=== PATIENT | male | born 1925 | race Caucasian/White ===

== ENCOUNTER 2016-07-14 15:45 | Inpatient (IN) ==
[2016-07-14 16:31] LABS: MANUAL DIFF NEEDED? NO
[2016-07-14 16:39] LABS: BASO% 0.1 % (0.0-0.8); EOS# 0.03 X1000 (0.0-0.7); EOS% 0.2 % (0.0-10.0); HEMATOCRIT 34.1 % (42.0-52.0); HEMOGLOBIN 11.3 g/dL (14.0-18.0); IMM GRAN# 0.05 X1000 (0.0-0.04); IMM GRAN% 0.3 % (0.0-0.5); LYMPH# 0.97 X1000 (1.2-3.4); LYMPH% 5.6 % (20.5-51.1); MCH 31.1 PG (27-31); MCHC 33.1 g/dL (33-37); MCV 93.9 FL (81-99); MONO# 2.04 X1000 (0.11-0.59); MONO% 11.9 % (1.7-9.3); MPV 10.5 FL (7.4-10.4); NEUT% 81.9 % (42.2-75.2); PLT 173 X1000 (130-400); RBC 3.63 XMIL (4.7-6.1)
[2016-07-14] MEDS ORDERED: TYLENOL PO ONE (16:42)
--- NOTE | 2016-07-14 16:48 | PROVIDER DOCUMENTATION ---
HPI-General Adult - General Chief Complaint: Shortness of Breath Stated Complaint: FEVER/LOW OXYGEN Time Seen by Provider: 07/14/16 16:33 Source: patient Allergies/Adverse Reactions: Patient Allergies Allergy/AdvReac Type Severity Reaction Status Date / Time adhesive tape Allergy RASH Verified 04/08/15 11:21 Home Medications: Home Medication List Medication Instructions Recorded Confirmed Last Taken Type Aspirin [[place] Aspirin] 81 mg PO DAILY 10/22/13 04/25/16 04/25/16 09:00 History SIMVAstatin [Zocor] 40 mg PO HS 10/22/13 04/25/16 03/21/15 20:00 History Tamsulosin [Flomax] 0.4 mg PO DAILY 10/22/13 04/25/16 03/21/15 20:00 History Multivit-Min/FA/Lycopene/Lut 1 each PO DAILY 05/04/14 04/25/16 03/21/15 20:00 History [Centrum Silver Tablet] Hydralazine [Apresoline] 50 mg PO TID 03/17/15 04/25/16 03/22/15 05:00 History Calcium Acetate 667 mg PO DAILY 04/25/16 04/25/16 Unknown History Cholecalciferol (Vitamin D3) 5,000 unit PO DAILY 04/25/16 04/25/16 Unknown History [Vitamin D3] Folic Acid/Vit Bcomp,C [Dialyvite 0.8 mg PO DAILY 04/25/16 04/25/16 Unknown History 800 Tablet] Gabapentin [Neurontin] 100 mg PO QAM 04/25/16 04/25/16 Unknown History Loratadine 10 mg PO DAILY 04/25/16 04/25/16 Unknown History Mirtazapine [Remeron] 30 mg PO HS 04/25/16 04/25/16 Unknown History Nitroglycerin [Nitrostat] 0.4 mg SL PRN PRN 04/25/16 04/25/16 Unknown History Zinc 50 mg PO DAILY 04/25/16 04/25/16 Unknown History Acetaminophen [Tylenol] 650 mg PO Q4H PRN PRN #0 tablet 04/30/16 Unknown Rx Albuterol 2.5MG/Ipratrop 0.5MG 3 ml INH RTQ4H #0 neb 04/30/16 Unknown Rx [Duoneb (A & A)] CefDINIR [Omnicef] 300 mg PO DAILY #10 capsule 04/30/16 Unknown Rx Epoetin Sascha [Epogen] 10,000 unit SUBQ MoWeFr@0900 #0 04/30/16 Unknown Rx vial Methylprednisolone [Medrol Dosepak] 4 mg PO DIRECTED #1 package 04/30/16 Unknown Rx CefDINIR [Omnicef] 300 mg PO BID #10 capsule 05/01/16 Unknown Rx Methylprednisolone [Medrol Dosepak] 4 mg PO DIRECTED #1 package 05/01/16 Unknown Rx - History of Present Illness -Gen Adult Nature of Presenting Problems: Pt. is 89 yom that presents with c/o SOB and fever for two days. Pt. reports he was at dialysis today and states he was cold and couldn't get warm. Pt. states he told them he wanted to stop and go to the ED. Pt. denies any pain anywhere. Location of Pain/Injury: reports: none. denies: head, face, mouth, neck, chest , upper extremity, hand(s), abdomen, back, pelvis, genitalia, lower extremity, feet, upper body, lower body, generalized Pain Radiation: reports: no radiation Quality of Pain: reports: none. denies: aching, burning, cramping, dull, fullness, indigestion, pressure, sharp, stabbing, tearing, throbbing, tightness Severity: reports: moderate. denies: mild, severe Onset/Duration: reports: gradual, 2 days ago Timing: reports: still present. denies: improving, gone now, resolved prior to arrival, intermittent, constant, changing over time, getting worse Context/Activities at Onset: reports: none. denies: recent emotional stress, recent physical stress, recent trauma history, possible bad food, cold exposure , out of country travel Modifying Factors: improves with: nothing Associated Symptoms: reports: fever/chills, shortness of breath, weakness. denies: anxiety, arm pain, back/neck pain, chest pain, constipation, cough, diaphoresis, diarrhea, dizziness, EENT symptoms, fatigue, genitourinary problems , headaches, heartburn, joint pain, loss of appetite, malaise, muscle aches, sinus congestion/drainage, nausea, rash, seizure, sensory/motor loss, pain with inspiration, swelling/mass in abdomen, syncope, vomiting, trouble walking Similar Symptoms Previously?: Yes Recently seen or treated by another doctor?: No Review of Systems - Adult - REVIEW OF SYSTEMS - ADULT Constitutional: reports: see HPI, chills, fever, fatique. denies: night sweats , weight loss Eyes: reports: see HPI. denies: discharge, blurred vision, double vision Ears, Nose, Mouth & Throat: reports: see HPI. denies: ear discharge, ear pain, hearing loss, sinus problem, nose pain, loose teeth, mouth/dental pain, throat pain, throat swelling Cardiovascular: reports: see HPI. denies: chest pain, heart murmur, palpitations, syncope Respiratory: reports: see HPI, shortness of breath. denies: chronic cough, cough, dyspnea on exertion, pleurisy, wheezing Gastrointestinal: reports: see HPI. denies: abdominal pain, diarrhea, nausea, vomiting Genitourinary: reports: see HPI. denies: dysuria, discharge, flank pain, hesitency, urgency Musculoskeletal: reports: see HPI. denies: joint pain, muscle aches, neck pain Integumentary: reports: see HPI. denies: hives, itching, rash, skin thickening Neurological: reports: see HPI. denies: ataxia, headache/migraines, numbness, paresthesia, seizure, tremors Psychiatric: reports: see HPI. denies: anxiety, depression, emotional problems , insomnia, panic attacks, suicidal thoughts Past History - Adult - PAST MEDICAL HISTORY-ADULT Review of Records: reports: Old Records Reviewed, Nursing Assessment Review, Medications Reviewed, Social history reviewed & non-contributory. Major Childhood Illnesses: reports: denies history Cardiovascular: reports: HTN Respiratory: reports: denies history Gastrointestinal: reports: denies history Genitourinary: reports: dialysis, ESRD, kidney disease Musculoskeletal: reports: denies history Neurological: reports: denies history Endocrine/Immune: reports: denies history Other Conditions: reports: denies history Additional History: Pt currently on Dialysis - PRIOR SURGERIES/PROCEDURES Surgical/Procedure History: reports: CABG, cholecystectomy, orthopedic ( extremity) (hip), other (Dialysis graft placed) - PRIOR HOSPITALIZATIONS Prior Hospitalizations: reports: none - IMMUNIZATION STATUS Childhood Immunizations: See Nurse Assessment Flu Vaccine: See Nurse Assessment - FAMILY HISTORY Family History: reviewed, not pertinent - SOCIAL HISTORY Smoking: non-smoker Physical Exam-General - PHYSICAL EXAM-ADULT Initial Vital Signs Reviewed: Yes - CONSTITUTIONAL General Appearance: alert, mild distress, thin. negative: obese, anxious, lethargic, slow to respond, obtunded, combative - EYES Eyes: PERRL/EOMI, pink conjunctivae. negative: conjuctival exudate, scleral icterus, subconjunctival hemorrhage - HEAD, EARS, NOSE, MOUTH & THROAT HENMT: normocephalic/atraumatic, moist mucous membranes. negative: angioedema, frontal tenderness, maxillary tenderness - NECK Neck: non-tender, full range of motion, supple, normal inspection. negative: lymphadenopathy, trachial deviation, thyromegaly - RESPIRATORY Respiratory: lungs clear, normal breath sounds. negative: crackles, rales, rhonchi, stridor, wheezing - CARDIOVASCULAR Cardiovascular: normal peripheral pulses, regular rate, rhythm, no JVD, no murmur. negative: extra beats, friction rub, irregularly irregular - CHEST (BREASTS) Chest/Breast: deferred - GASTROINTESTINAL (ABDOMEN) Abdominal Exam: normal bowel sounds, non tender, soft. negative: distended, guarding, rigid, rebound, tenderness, hernia, mass - GENITOURINARY Male Genitalia: deferred Rectal Exam: deferred Hemoccult Exam: deferred - LYMPHATIC Lymphatic: no adenopathy. negative: axilla node tender, cervical node tenderness - MUSCULOSKELETAL Back Exam: normal inspection, no CVA tenderness, no vertebral tenderness. negative: ecchymosis, swelling, vertebral tenderness Extremity: normal range of motion, non-tender, normal gait, normal inspection. negative: deformity, erythema, inflammation, swelling, tenderness Peripheral Pulses: radial (R): 2+, radial (L): 2+ - SKIN Integumentary: normal color, normal turgor, warm/dry. negative: cyanosis, diaphoresis, ecchymosis, erythema, jaundice, mottled, pallor, petechiae, purpura , rash, swelling, tenderness - NEUROLOGIC Neurologic: grossly normal, no motor/sensory deficits. negative: abnormal gait , aphasia, facial droop, focal weakness, motor weakness, sensory deficit - PSYCHIATRIC Psych/Mental Status: normal mood/affect, normal thought content, normal thought process, oriented x 3. negative: anxious, paranoid, tearful Progress - PLAN OF CARE/RESULTS Progress/Plan/Lab Results: Discussed results and plan of care with patient. Patient agrees with plan and verbalizes understanding. Vital Signs Temp Pulse Resp BP Pulse Ox 07/14/16 15:57 100.1 F H 70 22 161/70 91 L adhesive tape Allergy (Verified 04/08/15 11:21) RASH Aspirin [[place] Aspirin] 81 mg PO DAILY 10/22/13 SIMVAstatin [Zocor] 40 mg PO HS 10/22/13 Tamsulosin [Flomax] 0.4 mg PO DAILY 10/22/13 Multivit-Min/FA/Lycopene/Lut [Centrum Silver Tablet] 1 each PO DAILY 05/04/14 Hydralazine [Apresoline] 50 mg PO TID 03/17/15 Calcium Acetate 667 mg PO DAILY 04/25/16 Cholecalciferol (Vitamin D3) [Vitamin D3] 5,000 unit PO DAILY 04/25/16 Folic Acid/Vit Bcomp,C [Dialyvite 800 Tablet] 0.8 mg PO DAILY 04/25/16 Gabapentin [Neurontin] 100 mg PO QAM 04/25/16 Loratadine 10 mg PO DAILY 04/25/16 Mirtazapine [Remeron] 30 mg PO HS 04/25/16 Nitroglycerin [Nitrostat] 0.4 mg SL PRN PRN 04/25/16 Zinc 50 mg PO DAILY 04/25/16 Acetaminophen [Tylenol] 650 mg PO Q4H PRN PRN #0 tablet 04/30/16 Albuterol 2.5MG/Ipratrop 0.5MG [Duoneb (A & A)] 3 ml INH RTQ4H #0 neb 04/30/16 CefDINIR [Omnicef] 300 mg PO DAILY #10 capsule 04/30/16 Epoetin Sascha [Epogen] 10,000 unit SUBQ MoWeFr@0900 #0 vial 04/30/16 Methylprednisolone [Medrol Dosepak] 4 mg PO DIRECTED #1 package 04/30/16 CefDINIR [Omnicef] 300 mg PO BID #10 capsule 05/01/16 Methylprednisolone [Medrol Dosepak] 4 mg PO DIRECTED #1 package 05/01/16 Laboratory 07/14/16 07/14/16 07/14/16 16:10 16:10 16:10 WBC 17.17 H RBC 3.63 L Hgb 11.3 L Hct 34.1 L MCV 93.9 MCH 31.1 H MCHC 33.1 RDW Std Deviation 16.2 H Plt Count 173 MPV 10.5 H Immature Gran % (Auto) 0.3 Neut % (Auto) 81.9 H Lymph % (Auto) 5.6 L [place] % (Auto) 11.9 H Eos % (Auto) 0.2 Baso % (Auto) 0.1 Immature Gran # (Auto) 0.05 H Neut # (Auto) 14.06 H Lymph # (Auto) 0.97 L [place] # (Auto) 2.04 H Eos # (Auto) 0.03 Baso # (Auto) 0.02 Sodium 135 L Potassium 3.7 Chloride 93 L Carbon Dioxide 28 Anion Gap 14 BUN 15 Creatinine 3.0 H Estimated GFR/1.73 m2 20 BUN/Creatinine Ratio 5 Glucose 135 H Calculated Osmolality 273 Calcium 9.1 Total Bilirubin 1.10 H AST 31 ALT 11 Alkaline Phosphatase 132 H Total Protein 6.6 Albumin 3.7 Globulin 3.0 Albumin/Globulin Ratio 1.0 Plasma Lactate 2.0 Orders Category Date Time Status Saline Loc NOW Care 07/14/16 16:24 Active CHEST-2 VIEWS [RAD] Stat Exams 07/14/16 16:24 Taken BLOOD CULTURE [BLDCUL] Stat Lab 07/14/16 16:10 Ordered CBC WITH DIFF [HEME] Stat Lab 07/14/16 16:10 Completed COMPREHENSIVE METABOLIC PANEL [CHEM] Stat Lab 07/14/16 16:10 Completed LACTATE, PLASMA [CHEM] Stat Lab 07/14/16 16:10 Completed Acetaminophen [Tylenol] Med 07/14/16 16:42 Discontinued 1,000 mg PO NOW ONE Azithromycin 500 mg/Ns [Zithromax 500 mg/Ns] 250 ml Med 07/14/16 17:29 Active IV NOW CefTRIAXONE 1 GM/NS [Rocephin 1 gm/Ns] 50 ml Med 07/14/16 17:28 Active IV NOW Pulse Oximetry Stat Oth 07/14/16 16:24 Active EKG [EKG] Stat Ther 07/14/16 16:29 Ordered Laboratory Tests 07/14/16 07/14/16 07/14/16 16:10 16:10 16:10 WBC 17.17 H RBC 3.63 L Hgb 11.3 L Hct 34.1 L MCV 93.9 MCH 31.1 H MCHC 33.1 RDW Std Deviation 16.2 H Plt Count 173 MPV 10.5 H Immature Gran % (Auto) 0.3 Neut % (Auto) 81.9 H Lymph % (Auto) 5.6 L [place] % (Auto) 11.9 H Eos % (Auto) 0.2 Baso % (Auto) 0.1 Immature Gran # (Auto) 0.05 H Neut # (Auto) 14.06 H Lymph # (Auto) 0.97 L [place] # (Auto) 2.04 H Eos # (Auto) 0.03 Baso # (Auto) 0.02 Sodium 135 L Potassium 3.7 Chloride 93 L Carbon Dioxide 28 Anion Gap 14 BUN 15 Creatinine 3.0 H Estimated GFR/1.73 m2 20 BUN/Creatinine Ratio 5 Glucose 135 H Calculated Osmolality 273 Calcium 9.1 Total Bilirubin 1.10 H AST 31 ALT 11 Alkaline Phosphatase 132 H Total Protein 6.6 Albumin 3.7 Globulin 3.0 Albumin/Globulin Ratio 1.0 Plasma Lactate 2.0 - XRAY 1 XRAY Study: Chest (Lingular pneumonia, Right and possible left effusion ( [place])) XRAY Interpretation: see note - CONSULTS/PCP/HOSPITALIST Notification #1 *Consult/PCP/Hospitalist*: Dr. Khan Time Discussed: 17:32 Reason/Comments: Admission Consult Disposition: Admit Departure - Departure Time of Disposition Order: 17:33 DIAGNOSIS: Renal failure Pneumonia Qualifiers: Pneumonia type: due to unspecified organism Laterality: unspecified laterality Lung location: unspecified part of lung Qualified Code(s): J18.9 - Pneumonia, unspecified organism Fever Qualifiers: Fever type: unspecified Qualified Code(s): R50.9 - Fever, unspecified Disposition: ADMITTED INPATIENT 09 Certified Medical Emergency: Emergent Condition: Stable Attestation - Physician/ TIKI Attestation Patient care was provided by Advanced Practice Provider:: Yes Advanced Practice Provider:: Nataliia Cline Advanced Practice Provider documentation review:: The Mid-level provider documentation, treatment plan and medical decision making was reviewed by the physician who agrees with all treatment and medical decision making by the MLP.
[2016-07-14 16:59] LABS: ALBUMIN 3.7 g/dL (3.5-5.0); CALCIUM 9.1 mg/dL (8.8-10.2); POTASSIUM 3.7 mmol/L (3.5-5.1); TOTAL BILIRUBIN 1.1 mg/dL (0.20-1.00); TOTAL PROTEIN 6.6 g/dL (6.3-8.3)
[2016-07-14] MEDS ORDERED: ROCEPHIN 1 GM/NS 50 ML IV ONE (17:28)
[2016-07-14] MEDS ORDERED: ZITHROMAX 500 MG/NS 250 ML IV ONE (17:29)
--- NOTE | 2016-07-14 17:31 | ED EKG INTERP ---
EKG Interpretation - EKG Time of EKG reading by physician:: 17:01 EKG Read and Signed by:: Skip Bowers EKG Interpretation (*Must complete 3 of following elements*): Abnormal ( undeterminded rhythm, nonspecific ST abnormalilty, Abnormal ECG) Rate: 55 Rhythm: undetermined rhythm Elizabeth: normal QRS: normal [place] Interval: normal ST Wave: non-specific ST changes Comments: slow, irregular supraventricular
[2016-07-14] MEDS ORDERED: NS 1,000 ML IV SCH ×2 (17:45→19:06)
--- NOTE | 2016-07-14 18:15 | EKG Report ---
Test Performed on : 07/14/2016 5:01:15 PM Test Reason : SOB Blood Pressure : / mmHG Vent. Rate : 055 BPM Atrial Rate : 055 BPM P-R Int : 000 ms QRS Dur : 084 ms QT Int : 472 ms P-R-T Axes : 000 010 -19 degrees QTc Int : 451 ms Undetermined rhythm Nonspecific ST abnormality Abnormal ECG When compared with ECG of 16-SEP-2008 04:20, Current undetermined rhythm precludes rhythm comparison, needs review ST now depressed in Anterolateral leads T wave inversion now evident in Inferior leads QT has lengthened Unconfirmed Result
--- NOTE | 2016-07-14 18:21 | Diag Imaging Result Document ---
PROCEDURE NAME: CHEST-2 VIEWS - 07/14/2016 TWO VIEWS OF THE CHEST: FINDINGS: There is increasing alveolar opacification in the perihilar portion of the lingula and left lower lobe. Compared to 04/27/2016. There is increasing right pleural effusion on the right. IMPRESSION: Worsening pneumonia on the left and pleural effusion on the right.
[2016-07-14] MEDS: DUONEB (A & A) INH SCH ×2 (19:42→22:40)
[2016-07-14] MEDS: ZOCOR PO SCH (21:15)
[2016-07-14] MEDS: TYLENOL PO PRN (21:18)
--- NOTE | 2016-07-14 21:56 | HISTORY AND PHYSICAL ---
CHIEF COMPLAINT: Shortness of breath. HISTORY OF PRESENT ILLNESS: Mr. Layton cali has been admitted to the hospital multiple times in the past. He presented today after hemodialysis notes that at the end of dialysis he started feeling cold, weak and tired. He asked them to bring him to the emergency department. He notes he has had increased cough, congestion, increased shortness of breath for the past day or so. He subsequently was diagnosed with pneumonia. ALLERGIES: Adhesive tape causing a rash. MEDICATIONS: Aspirin 81 mg, Zocor 40, Flomax 0.4, multivitamin, hydralazine 50 t.i.d., calcium, vitamin D, Neurontin 100 q.a.m., loratadine 10 daily, Remeron 30 at bedtime, Nitrostat, Tylenol p.r.n., CODIE nebs p.r.n., he has recently been on Omnicef for pneumonia back in April, . REVIEW OF SYSTEMS: Positive cough, congestion, shortness of breath increasing for the past 2 days. Denies any current fevers or chills other than today. States he has had increased shortness of breath today, increased generalized weakness. Denies chest pain, palpitations. Denies headaches, blurred vision, change in vision. Denies any focalized numbness, tingling or weakness in his extremities. Denies any dysuria, frequency, constipation, melena, hematochezia. PAST MEDICAL HISTORY: End-stage renal disease on hemodialysis, COPD, hypertension, high cholesterol, known coronary artery disease status post CABG, history of cholecystectomy. FAMILY HISTORY: Noncontributory. SOCIAL HISTORY: He lives at home. Is cared for by his and his daughter. He does not smoke or drink. OBJECTIVE: Vital Signs: Reviewed. He is currently afebrile. T max in the ER 100.1, pulse 70, respiratory 22, BP 161/70, saturations 91% on room air. General: The patient is well developed, well nourished. He is currently in no respiratory distress. He is pleasant to talk with. HEENT: Normocephalic, atraumatic. MIS. Neck: Supple. CV: Regular rate. Chest: Relatively clear. Abdomen: Soft, nondistended. Extremities: Moves all extremities. Neurologic: No changes. Skin: Warm and dry. No rashes. DIAGNOSTIC DATA: WBC 17, hemoglobin and hematocrit 11 and 34. Sodium 135, potassium 3.7, creatinine 3.0, total bilirubin 1.1. ASSESSMENT: 1. Sepsis secondary to pneumonia. 2. Pneumonia. 3. Leukocytosis. 4. Fever. 5. End-stage renal disease. 6. Hypertension. 7. Chronic obstructive pulmonary disease. 8. High cholesterol. PLAN: We will admit patient to the hospital. IV fluids. IV Rocephin. Breathing treatments. Will continue to follow. Hopefully he will be able to discharge home after 48 hours and go to dialysis on Sunday morning. cc: Navjot Khan MD
[2016-07-15] MEDS: TYLENOL PO PRN ×3 (02:45→22:35)
[2016-07-15] MEDS: DUONEB (A & A) INH SCH ×6 (03:00→22:35)
[2016-07-15] MEDS ORDERED: MOTRIN ONE (05:03)
[2016-07-15] MEDS: ASPIRIN EC PO SCH (09:00)
[2016-07-15] MEDS: VITAMIN D PO SCH (09:00)
[2016-07-15] MEDS: FLOMAX PO SCH (09:00)
[2016-07-15] MEDS: PHOSLO PO SCH (09:00)
[2016-07-15] MEDS: NEPHROCAPS PO SCH (09:00)
[2016-07-15] MEDS: NEURONTIN PO SCH (09:00)
--- NOTE | 2016-07-15 10:06 | PROGRESS NOTE ---
DATE: 07/15/2016 SUBJECTIVE: Patient without new complaints. States that he is feeling a little bit better. PHYSICAL EXAMINATION: Vital signs: Temp 98, pulse 71, respiratory 16, BP 99/40, satting 93% on 2 L. General: The patient is awake, alert. He is in no respiratory distress. He is pleasant to talk with. HEENT: Normocephalic, atraumatic, MIS. Neck: Supple. CV: Regular rate and rhythm. Chest: Relatively clear. Abdomen: Soft, nondistended. Extremities: Moves all extremities. Neurological: No focal neurological changes. Skin: Warm, dry, no rashes. ASSESSMENT: 1. Pneumonia, improving. 2. Hypoxemia, chronic and stable. 3. Chronic renal failure on hemodialysis. 4. Others. 5. Fever. 6. Sepsis as noted by his fever, low blood pressure and pneumonia. PLAN: Will continue patient on his current antibiotics. Will continue to follow. Further orders as needed. cc: Navjot Khan MD
[2016-07-15] MEDS: APRESOLINE PO SCH ×3 (13:00→17:01)
[2016-07-15] MEDS: ZITHROMAX 500 MG/NS 250 ML IV SCH (17:45)
[2016-07-15] MEDS: ROCEPHIN 1 GM/NS 50 ML IV SCH (17:45)
[2016-07-15 18:36] LABS: HEMATOCRIT 30.6 % (42.0-52.0); HEMOGLOBIN 9.9 g/dL (14.0-18.0); MCH 30.5 PG (27-31); MCHC 32.4 g/dL (33-37); MCV 94.2 FL (81-99); RBC 3.25 XMIL (4.7-6.1)
[2016-07-15] MEDS: ZOCOR PO SCH (20:20)
[2016-07-15 21:41] LABS: AGAP 14; ALKALINE PHOSPHATASE 125 U/L (32-122); BUN 23 mg/dL (8-22); CALCIUM 8.5 mg/dL (8.8-10.2); CHLORIDE 97 mmol/L (98-107); COSMO 276; GOT 31 U/L (10-34); GPT 10 U/L (10-44); POTASSIUM 3.1 mmol/L (3.5-5.1); SODIUM 136 mmol/L (136-145); TCO2 25 mmol/L (25-35); TOTAL PROTEIN 5.4 g/dL (6.3-8.3)
[2016-07-16] MEDS ORDERED: MOTRIN PO ONE (00:22)
[2016-07-16] MEDS: DUONEB (A & A) INH SCH ×6 (02:45→23:03)
[2016-07-16 08:21] LABS: HEMOGLOBIN 10.5 g/dL (14.0-18.0); MCH 30.6 PG (27-31); MCHC 32.8 g/dL (33-37); MCV 93.3 FL (81-99); RBC 3.43 XMIL (4.7-6.1)
[2016-07-16 08:22] LABS: MPV 10.6 FL (7.4-10.4)
[2016-07-16 08:46] LABS: AGAP 14; ALKALINE PHOSPHATASE 126 U/L (32-122); BUN 41 mg/dL (8-22); CALCIUM 8.8 mg/dL (8.8-10.2); CHLORIDE 95 mmol/L (98-107); COSMO 276; GOT 34 U/L (10-34); GPT 12 U/L (10-44); POTASSIUM 3.4 mmol/L (3.5-5.1); SODIUM 133 mmol/L (136-145); TCO2 24 mmol/L (25-35); TOTAL PROTEIN 5.9 g/dL (6.3-8.3)
[2016-07-16] MEDS: PHOSLO PO SCH (08:54)
[2016-07-16] MEDS: NEURONTIN PO SCH (08:54)
[2016-07-16] MEDS: FLOMAX PO SCH (08:54)
[2016-07-16] MEDS: APRESOLINE PO SCH ×3 (08:54→16:58)
[2016-07-16] MEDS: NEPHROCAPS PO SCH (08:54)
[2016-07-16] MEDS: VITAMIN D PO SCH (08:54)
[2016-07-16] MEDS: ASPIRIN EC PO SCH (08:54)
--- NOTE | 2016-07-16 10:54 | PROGRESS NOTE ---
DATE: 07/16/2016 SUBJECTIVE: Patient notes that he had some low-grade fevers last night. Otherwise, he feels tired this morning. States he feels a little confused. OBJECTIVE: Vital Signs: Temperature 98 degrees, pulse 63, respiratory rate 18, BP 120/68. General: Patient is well developed, well nourished. Currently in no respiratory distress. He is awake, alert, oriented. Answers questions appropriately. Moves all extremities well. Neck: Supple. CV: Regular rate. Chest: Relatively clear. Abdomen: Soft. Extremities: Moves all extremities. Neurologic: No changes. ASSESSMENT: 1. Pneumonia. Continue azithromycin and Rocephin. 2. End-stage renal disease. 3. Urinary retention. We will try Flomax. 4. Hypertension. Continue hydralazine. PLAN: Hopefully, patient can be discharged home in the a.m. to hemodialysis and will continue antibiotics at home. His sepsis has resolved. cc: Navjot Khan MD
[2016-07-16] MEDS ORDERED: NS 500 ML ONE (16:54)
[2016-07-16] MEDS: ROCEPHIN 1 GM/NS 50 ML IV SCH (16:58)
[2016-07-16] MEDS: ZITHROMAX 500 MG/NS 250 ML IV SCH (17:45)
[2016-07-16] MEDS: ZOCOR PO SCH (20:08)
[2016-07-17] MEDS: DUONEB (A & A) INH SCH ×5 (03:13→22:46)
[2016-07-17] MEDS ORDERED: ROBITUSSIN-AC PO PRN ×2 (07:54→16:56)
[2016-07-17] MEDS ORDERED: NS 2,000 ML MISC PRN (08:05)
[2016-07-17] MEDS ORDERED: HEPARIN IV PRN ×2 (08:05→16:53)
[2016-07-17] MEDS ORDERED: TIGHT: 0.2 ML/HR MISC PRN ×2 (08:05→17:02)
--- NOTE | 2016-07-17 08:17 | PROGRESS NOTE ---
DATE: 07/17/2016 SUBJECTIVE: The patient states that he still feels tired and fatigued. Does not feel strong enough to go home. He has had difficulty ambulating. OBJECTIVE: Vital signs: Temperature 99, pulse 88, respiratory 16, BP 131/75, saturation 92% on room air. General: Patient is an elderly male who is currently in no respiratory distress. He is awake, alert. Neck: Supple. CV: Regular rate. Chest: Relatively clear. Positive rhonchi. Abdomen: Soft. Extremities: Moves all extremities. Neurologic: No changes. ASSESSMENT: 1. Left lower lobe pneumonia. 2. Increasing right pleural effusion. 3. Chronic renal disease on hemodialysis. 4. High cholesterol. 5. Hypoxemia. 6. Generalized weakness. 7. Leukocytosis. PLAN: Patient will need to be transferred to [facility] for hemodialysis. He will need to have labs and a repeat chest x-ray after hemodialysis to see if this has helped his pleural effusion. If a bed is available certainly may warrant him staying there for pulmonology consultation. If not, then he will be transferred back to [place] and we will continue his current regimen. cc: Navjot Khan MD
[2016-07-17] MEDS ORDERED: EPOGEN SUBQ SCH (09:00)
[2016-07-17] MEDS ORDERED: HEPARIN ONE (09:13)
[2016-07-17] MEDS: ASPIRIN EC PO SCH (09:54)
[2016-07-17] MEDS: PHOSLO PO SCH (09:55)
[2016-07-17] MEDS: NEURONTIN PO SCH (09:55)
[2016-07-17] MEDS: APRESOLINE PO SCH ×3 (09:55→20:24)
[2016-07-17] MEDS: NEPHROCAPS PO SCH (09:55)
[2016-07-17] MEDS: VITAMIN D PO SCH (09:55)
[2016-07-17] MEDS: FLOMAX PO SCH (09:55)
[2016-07-17] MEDS ORDERED: TYLENOL PO PRN (16:59)
[2016-07-17] MEDS: ROCEPHIN 1 GM/NS 1 GM/50 ML IVPB IV SCH (18:29)
[2016-07-17] MEDS: EPOGEN SUBQ SCH (18:29)
[2016-07-17] MEDS: ZITHROMAX 500 MG/NS 500 MG/250 ML IVPB IV SCH (20:24)
[2016-07-17] MEDS: ZOCOR PO SCH (20:24)
--- NOTE | 2016-07-17 20:39 | CONSULTATION ---
DATE OF CONSULTATION: 07/17/2016 REASON FOR ADMISSION: Increased work of breathing. REASON FOR CONSULT: Assistance with end-stage renal disease and medical management. HISTORY OF PRESENT ILLNESS: Mr. Traylor is an 89-year-old white male who is known to our outpatient services for hemodialysis on Sunday, Sunday, Sunday at the [facility]. Patient has been unfortunate to have multiple admissions secondary to pneumonia. He stated that he started with a cold approximately 1 week ago. He became weak and tired. He asked to be brought into the emergency department. He went to [place] and was found to have increased cough, increased congestion, increased shortness of breath and pneumonia on chest x- ray. He denies any chest pain. He does have increased work of breathing. No nausea, vomiting, no diarrhea. Decreased appetite. No increased lower extremity swelling. PAST MEDICAL HISTORY: End-stage renal disease with hemodialysis on Sunday, Sunday, Sunday, COPD, hypertension, high cholesterol, coronary artery disease, history of post CABG, history of cholecystectomy. 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 PREVIOUS SURGICAL HISTORY: Patient has an AV fistula to the left upper arm. Previous tunnel catheter placements. SOCIAL HISTORY: He is . He lives with his spouse. He has a daughter who is attentive to his care. He does not smoke. No alcohol. No illicit drug use. FAMILY HISTORY: Noncontributory to renal disease. ALLERGIES: Adhesive tape causing a rash. MEDICATIONS: Aspirin. Zocor. Flomax. Multivitamin. Hydralazine. Calcium. Acetate. Vitamin D. Neurontin. Loratadine. Remeron. Nitrostat. Tylenol. CODIE nebulizers. Omnicef for pneumonia previous April. He also receives Aranesp, IV iron, Ferrlecit as indicated at the outpatient clinic. REVIEW OF SYSTEMS: Times 10 with pertinent positives listed above in the HPI. PHYSICAL EXAMINATION: Vital Signs: Last temperature recorded 99.1, patient's blood pressure 131/75, heart rate 88, respirations 16, he is currently on 2 L nasal cannula. Last recorded saturation is 93-95%. His previous intake is 1515. He has had 0 recorded out with need for hemodialysis. General: This is an 89-year-old, white male. He is currently resting in bed. He is in no acute distress. Skin: Warm and dry. HEENT: Normocephalic, atraumatic. Conjunctivae is pale. He has MSI. Mucous membranes are dry. Neck: Supple. Trachea midline. No JVD. Cardiovascular: Regular rate and rhythm. No murmur or gallop appreciated. Lungs: Clear to auscultation anteriorly. Equal excursion. He is on room air. Abdomen: Round , soft, nontender. Positive bowel sounds. Extremities: Have no edema. No clubbing or cyanosis. Integumentary warm and dry without rashes or lesions. Neurological: Alert and oriented x3. LABORATORY THIS A.M.: Have not been drawn. His sodium yesterday 133, potassium 3.4, chloride 95 CO2 24, BUN 41, creatinine 6.3, glucose 89, calcium is 8.8. Albumin of 3. Plasma lactate on admission was 2. White count 16.59, hemoglobin 10.5, hematocrit 32, with a platelet count of 163,000. ASSESSMENT AND PLAN: 1. End-stage renal disease. Patient is due for his routine dialysis treatment today. We will place him on an appropriate potassium bath of 3K. He is to dialyze for 3.5 hours. We will attempt to pull patient to his outpatient dry weight. 2. Sepsis secondary to pneumonia. Patient has leukocytosis. He is currently on guaifenesin and Zithromax, as indicated, followed by primary care. 3. Electrolytes these are stable. 4. Acid-base balance. This is stable. 5. Anemia. This remains low, but stable. I would to thank you for allowing us to follow with this patient. Seen, data reviewed, discussed with Anay Dan on 07/18/16. I agree with the above assessment and plan of care. rg Dictated by LAVELL Sevilla for Crow Antony MD cc: LAVELL Sevilla MD Gregory S. Cheatham, MD MTDD
[2016-07-18] MEDS: DUONEB (A & A) INH SCH ×6 (02:35→23:04)
[2016-07-18] MEDS: NEURONTIN PO SCH (09:51)
[2016-07-18] MEDS: PHOSLO PO SCH (09:51)
[2016-07-18] MEDS: NEPHROCAPS PO SCH (09:51)
[2016-07-18] MEDS: ASPIRIN EC PO SCH (09:51)
[2016-07-18] MEDS: APRESOLINE PO SCH ×3 (09:52→22:15)
[2016-07-18] MEDS: VITAMIN D PO SCH (09:52)
[2016-07-18] MEDS: FLOMAX PO SCH (09:52)
--- NOTE | 2016-07-18 14:07 | PROGRESS NOTE ---
DATE: 07/18/2016 SUBJECTIVE: The patient has no major complaints. OBJECTIVE: Vital Signs: Blood pressure 119/67, heart rate is 71, respiratory rate 18, temperature 98.5 degrees, 89% on room air. Pulmonary: Decreased breath sounds at the bases. No wheezing. Occasional rales. Gastrointestinal: Abdomen soft, nontender, nondistended. Bowel sounds are positive. Cardiovascular: Regular rate and rhythm. Pulmonary as described. LABORATORY DATA: Creatinine 4.8 today. Troponin is mildly elevated at 0.167, with a normal CK. IMPRESSION: In any case, patient clinically has improved. PROBLEM LIST: 1. Pneumonia with sepsis. He is still on broad-spectrum antibiotics. I am going to repeat his chest x-ray today. There is some concern over getting Pulmonary to re-evaluate him. I do not see we have repeated any imaging, so again we will repeat his chest x-ray today and follow. Get Pulmonary opinion per primary care request. He is on Rocephin and azithromycin and will follow clinically. 2. End-stage renal. He is on dialysis per Dr. Antony who is following. 3. Hypertension. Appears to be relatively well controlled. 4. New problem: Elevated troponin. We will repeat his levels, get an EKG and follow clinically. I think he does have CAD history. He had a nonsustained episode of ventricular tachycardia today. We are monitoring his electrolytes. Elevated troponin is likely just related to his renal failure and sepsis but we will trend and follow closely. If he continues to be elevated we will likely get cardiology input. cc: Jose James MD
--- NOTE | 2016-07-18 14:23 | Diag Imaging Result Document ---
PROCEDURE NAME: CHEST-2 VIEWS - 07/18/2016 PA AND LATERAL RADIOGRAPH OF THE CHEST: COMPARISON: 07/14/2016. FINDINGS: The small right pleural effusion is approximately stable. The lingular consolidation is also approximately stable. No new consolidations are identified. Cardiac silhouette is stable. IMPRESSION: Stable chest.
--- NOTE | 2016-07-18 14:33 | PROGRESS NOTE ---
DATE: 07/18/2016 TIME SEEN: 0750 SUBJECTIVE: Mr. Traylor is resting quietly in bed. His is at his bedside. He is confused to most recent events yesterday after being transferred from [place] to [facility] for dialysis and then being transferred upstairs instead of back to [place] and to his room. He denies any chest pain. No increased work of breathing. OBJECTIVE: His most recent vital signs, his temperature 98.3 degrees, blood pressure 130/65, heart rate 76, respirations are 18. He is on room air. Last recorded saturation is 93%. He has had 250 in. He has had 4 L out on dialysis yesterday. LABS: Sodium 137, potassium 4, chloride 96, CO2 24, BUN 36, creatinine 4.8, glucose 151. Anion gap is 17, calcium 9. He has a positive troponin more than likely secondary to dialysis. Previous hemoglobin on the 2nd was 10.5. PHYSICAL EXAMINATION: General: This is an 89-year-old white male. He is resting quietly in bed. He is in no acute distress. Skin: Warm and dry. HEENT: Normocephalic, atraumatic. Conjunctiva is pale. He has MIS. Mucous membranes moist. Neck: Supple. Trachea midline. No JVD. Cardiovascular: Regular rate and rhythm. He is without murmur or gallop. Lungs: Clear to auscultation anterior. Equal excursion on room air. Abdomen: Round, soft, nontender. Positive bowel sounds. Extremities: Have no edema. No clubbing or cyanosis. Neurological: He is alert and oriented to person and place with most recent events. Able to assist with exam. ASSESSMENT AND PLAN: 1. End-stage renal disease. Patient is due for his routine dialysis treatment in the a.m. We will place him on appropriate potassium bath. 2. Electrolytes and acid-base balance. These remain stable. 3. Anemia. This remains stable with no need for intervention. 4. Pneumonia. Patient is on renal dosed antibiotics. I would like to thank you for allowing us to follow with this patient. Seen, data reviewed, discussed with Anay Dan on 07/18/16. I agree with the above assessment and plan of care. rg Dictated by LAVELL Sevilla for Crow Antony MD cc: LAVELL Sevilla MD MTDD
--- NOTE | 2016-07-18 16:06 | EKG Report ---
Test Performed on : 07/18/2016 3:50:40 PM Test Reason : cp Blood Pressure : / mmHG Vent. Rate : 066 BPM Atrial Rate : 068 BPM P-R Int : 000 ms QRS Dur : 080 ms QT Int : 430 ms P-R-T Axes : 000 -02 044 degrees QTc Int : 450 ms Atrial fibrillation. Nonspecific ST abnormality Abnormal ECG When compared with ECG of 14-JUL-2016 17:01, (Unconfirmed) Previous ECG has undetermined rhythm, needs review ST no longer depressed in Lateral leads Nonspecific T wave abnormality has replaced inverted T waves in Inferior leads Confirmed by Ivory DUVALL, Ernesto Maddox ([id number]) on 07/19/2016 5:51:55 PM
[2016-07-18] MEDS: ROCEPHIN 1 GM/NS 1 GM/50 ML IVPB IV SCH (18:02)
[2016-07-18] MEDS: ZITHROMAX 500 MG/NS 500 MG/250 ML IVPB IV SCH (22:14)
[2016-07-18] MEDS: ZOCOR PO SCH (22:15)
--- NOTE | 2016-07-19 01:34 | Diag Imaging Result Document ---
PROCEDURE NAME: CT THORAX W/O CONTRAST - 07/18/2016 STUDY: CT chest without contrast. COMPARISON: Compared to 04/28/2016. There are small bilateral pleural effusions. These are minimally larger than on the prior exam. There are multiple scattered calcified pleural plaques and scattered granuloma. These are unchanged. Prominent atherosclerosis. The heart is borderline mildly prominent. Development of dense infiltrates posteriorly in the left upper lobe and in the lingula. Atelectasis in the lower lungs similar to the prior exam. There are several calcified mediastinal and hilar lymph nodes. IMPRESSION: Development of dense infiltrates in the left upper lobe, otherwise fairly stable CT of the chest. A preliminary report was given at 9:50 p.m.
[2016-07-19] MEDS: DUONEB (A & A) INH SCH ×6 (03:15→22:55)
[2016-07-19 03:24] LABS: ALLEN TEST YES; BE 6.1 mmoll (-3.0-3.0); BLOOD TYPE ARTERIAL; DRAW SITE R BRACHIAL; METHB 1.8 % (0.0-1.5); O2(CT) 15.1 mL/dL (15.0-23.0); PCO2(98.6) 38 mmHg (35-45); PO2(98.6) 58 mmHg (60-100); SAMPLE BLOOD; SAO2 93.9 % (95.0-100.0); THB 11.9 g/dL (11.5-17.4)
[2016-07-19 03:28] LABS: MODALITY ROOM AIR
[2016-07-19] MEDS ORDERED: TIGHT: 0.2 ML/HR MISC PRN (06:50)
[2016-07-19] MEDS ORDERED: HEPARIN IV PRN (06:50)
[2016-07-19] MEDS ORDERED: NS 2,000 ML MISC PRN (06:50)
[2016-07-19 07:43] LABS: POTASSIUM 3.8 mmol/L (3.5-5.1)
[2016-07-19 07:44] LABS: HEMATOCRIT 31.9 % (42.0-52.0); HEMOGLOBIN 10.2 g/dL (14.0-18.0); MCH 30.3 PG (27-31); MCV 94.7 FL (81-99); MPV 10.2 FL (7.4-10.4); RBC 3.37 XMIL (4.7-6.1)
[2016-07-19] MEDS: ASPIRIN EC PO SCH (08:05)
[2016-07-19] MEDS: FLOMAX PO SCH (08:05)
[2016-07-19] MEDS: VITAMIN D PO SCH (08:05)
[2016-07-19] MEDS: PHOSLO PO SCH (08:05)
[2016-07-19] MEDS: NEPHROCAPS PO SCH (08:05)
[2016-07-19] MEDS: APRESOLINE PO SCH ×3 (08:05→21:45)
--- NOTE | 2016-07-19 08:24 | PROGRESS NOTE ---
DATE: 07/19/2016 SUBJECTIVE: He is sitting up in the chair. He states he is feeling well and asking for discharge. He has been able to eat. No nausea or vomiting. OBJECTIVE: Vital Signs: Blood pressure 136/61, heart rate 76, respirations 20, afebrile. General: No acute distress. Skin: Warm and dry with multiple bruises. Eyes: Conjunctivae are pink and moist. Neck: Neck veins are distended. Trachea is midline. Heart: Regular with systolic murmur. Lungs: Have equal breath sounds. Few crackles. Abdomen: Soft, nontender. Bowel sounds are present. Extremities: Have no edema, clubbing, or cyanosis. LABORATORY DATA: Sodium 143, potassium 3.8, chloride 100, bicarbonate 26, BUN 47, creatinine 6.0, hemoglobin 10.2. IMPRESSION: 1. End-stage kidney disease. He will have his routine hemodialysis today. However, we will use a 3 potassium bath. 2. Pneumonia. He is on room air. We can dose Fortaz as an outpatient at the dialysis unit if there is no other reason for his ongoing admission to the hospital. If you desire this, please let me know and I will arrange for it. 3. Electrolytes/acid base/anemia, all in target. cc: Crow Antony MD
--- NOTE | 2016-07-19 09:35 | CONSULTATION ---
DATE OF CONSULTATION: 07/19/2016 REFERRING PHYSICIAN: Dr. Jose James. CHIEF COMPLAINT: Shortness of breath. HISTORY OF PRESENT ILLNESS: This is an 89-year-old male with a past medical history of end-stage renal disease on hemodialysis, COPD hypertension, high cholesterol, coronary artery disease, that presented to the hospital with complaints of weakness, chills and fatigue after his dialysis treatment. He has been admitted for evaluation of his respiratory failure secondary to pneumonia. REVIEW OF SYSTEMS: Positive for cough, congestion, shortness of breath. Fever and chills has resolved. He has had generalized weakness. Denies any chest pain, palpitations , abdominal pain, nausea, vomiting or diarrhea. PAST MEDICAL HISTORY: As mentioned in HPI, otherwise noncontributory. PAST SURGICAL HISTORY: Cholecystectomy and CABG. FAMILY HISTORY: Noncontributory. SOCIAL HISTORY: The patient lives at home with family. Denies use of tobacco, alcohol or illicit drugs. ALLERGIES: Adhesive tape. ACTIVE MEDICATIONS: 1. Tylenol. 2. DuoNeb. 3. Aspirin. 4. Zithromax. 5. PhosLo. 6. Rocephin. 7. Vitamin D. 8. Epogen. 9. Neurontin. 10. Robitussin AC. 11. Heparin. 12. Apresoline. 13. Nephrocaps. 14. Zocor. 15. Flomax. PHYSICAL EXAMINATION: Vital Signs: Temp 98.1, blood pressure 136/61, heart rate 76, respiratory rate 20, oxygen saturation 95%. General: Awake, alert, sitting up in bed in no acute distress noted. HEENT: Normocephalic and atraumatic. PERRL. Cardiovascular: Regular rate and rhythm. Chest: Reduced entry. Decreased breath sounds bilaterally. Abdomen: Nontender and nondistended. Bowel sounds present. Extremities: Trace pedal edema. Neurologic: Alert and oriented. LABS/INVESTIGATIONS: WBC 7.89, RBC 3.37, hemoglobin 10.2, hematocrit 31.9, platelet count 200. Sodium 143, potassium 3.8, chloride 100, carbon dioxide 26, anion gap 17, BUN 47. Creatinine is pending. Glucose 83.1. Blood gas reveals a pH of 7.5, pCO2 of 38, PO2 of 58, HC03 29.5. Saturated oxygen 94. IMAGING: Chest CT performed on 07/18/2016 shows development of dense infiltrates in left upper lobe, otherwise stable. ASSESSMENT AND PLAN: This is an 89-year-old male with past medical history mentioned in history of present illness that presented to the hospital after hemodialysis when he began to be weak and tired with some chills. He was diagnosed with pneumonia and small pleural effusion on chest CT. admitted to the floor for further evaluation, management and treatment. Continue antibiotics for his persistent pneumonia and sepsis. Dialysis for end-stage renal disease. Continue inhaled bronchodilators. Deep vein thrombosis prophylaxis. Further recommendation pending diagnostic studies. Thank for the courtesy of this consult. Dictated by LAVELL Hitchcock for Taras Barrientos MD cc: LAVELL Hitchcock MD MTDD
[2016-07-19] MEDS ORDERED: HEPARIN ONE (10:53)
[2016-07-19] MEDS ORDERED: NS 2,000 ML ONE (10:53)
[2016-07-19] MEDS: NEURONTIN PO SCH (16:01)
--- NOTE | 2016-07-19 16:33 | PROGRESS NOTE ---
DATE: 07/19/2016 OBJECTIVE: Vital Signs: Blood pressure 136/61, heart rate of 76, respiratory rate of 20, temperature 98.1 degrees. Cardiovascular: Regular rate and rhythm. Pulmonary: Bilateral breath sounds. Clear to auscultation. GI: Soft, nontender, nondistended. Bowel sounds are positive. Extremities: No clubbing or cyanosis. Lymphatic: No peripheral edema. LABORATORY DATA: White count is normal today, 7.8. Chemistry; BUN and creatinine 47 and 6, his proBNP was 35,000, he is a dialysis patient. In any case, PROBLEM LIST: 1. Pneumonia left upper lobe. We will continue antibiotics. Clinically he appears improved. We will continue breathing treatments and antibiotics, he is on azithromycin day 3 and Rocephin day 3, and appears to be improving. 2. End-stage renal. He is on dialysis per Renal Service. 3. Hypertension. Continue his regular medications. 4. Elevated troponin. He did have an episode of nonsustained ventricular tachycardia but this appears to be doing okay. He has had elevated troponins in the past. We will continue to monitor. Elevated troponin now is really unremarkable. His most recent echo was in February and looked pretty stable, so we will continue to follow. EF was 60%. I may get a cardiology evaluation while he is here. In any case, DISPOSITION: He is very reluctant to go home because he went home too soon previously, so we will watch him, will get PT to work with him, and we will continue to follow closely. cc: Jose James MD
[2016-07-19] MEDS: EPOGEN SUBQ SCH (17:23)
[2016-07-19] MEDS: ROCEPHIN 1 GM/NS 1 GM/50 ML IVPB IV SCH (18:52)
[2016-07-19] MEDS: ZITHROMAX 500 MG/NS 500 MG/250 ML IVPB IV SCH (21:45)
[2016-07-19] MEDS: ZOCOR PO SCH (21:45)
[2016-07-20] MEDS: DUONEB (A & A) INH SCH ×6 (03:30→23:05)
[2016-07-20 07:12] LABS: HEMOGLOBIN 10.9 g/dL (14.0-18.0); MCH 30.2 PG (27-31); MCHC 32.1 g/dL (33-37); MCV 94.2 FL (81-99); MPV 10.7 FL (7.4-10.4); RBC 3.61 XMIL (4.7-6.1)
[2016-07-20 07:22] LABS: ALBUMIN 2.9 g/dL (3.5-5.0); CALCIUM 9.1 mg/dL (8.8-10.2)
--- NOTE | 2016-07-20 08:11 | CONSULTATION ---
DATE OF CONSULTATION: 07/19/2016 This is a consultation requested by the hospitalization service. REASON FOR CONSULTATION: Ventricular tachycardia, coronary artery disease, positive troponin. HISTORY OF PRESENT ILLNESS: Mr. Traylor is a pleasant 89-year-old male who is normally followed by Dr. Keyur Cassidy. He presented to the dialysis center last Sunday, July 14, complaining of 24 hours of sudden onset of chills and feeling ill. Upon evaluation at the dialysis center they concluded that he probably had pneumonia and they sent him to [facility] where he was admitted. They did a chest x-ray on July 14 that showed worsening pneumonia on the left and a pleural effusion on the right. Over at [facility] they put him on antibiotics, however, because of his need for dialysis he has been transferred to [facility]. He had some episodes of transient delusions on July 16. He is better now. Dr. James observed on his telemetry an episode of 15 beats of nonsustained ventricular tachycardia at 9:14 in the morning on July 18. Because of his history of coronary artery disease and other reasons including the fact that they checked a troponin level on him, actually they checked several troponin levels, and they were microscopically elevated at 0.167 and 1.36 with normal CPKs, they requested an evaluation. Of note, his proBNP level is greater than 35,000. His C- reactive protein is very high at 141.0. The patient has been coughing up some dark thick phlegm. He is not having any pain at the present time. PAST MEDICAL HISTORY: Positive for severe coronary artery disease. Back in 2008 he underwent a triple bypass procedure. He has had a stable angina pattern. He was seen last time by Dr. Cassidy in the office on 02/22/2016 and at that time he was stable and he was scheduled to follow up in one year. The patient suffered an episode of pneumonia back on April 25, admitted to the hospital from the through the 01 of May. Back then they noted on a CT of the chest that he had compressive atelectasis at the bases. 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 At this time he does have a CT scan of the chest that indicates extensive pneumonic infiltrate in the left upper lobe lingula. The patient has a history of end-stage renal disease. He has been on hemodialysis for the past one year. Dr. Antony is monitoring his progress. He does have a history of hypertension. He has hyperlipidemia. PAST SURGICAL HISTORY: He had a dialysis catheter and then a fistula. He has had the aforementioned coronary bypass process. He has had shoulder surgery and back surgery in October of 2009. SOCIAL HISTORY: He has been for 72 years. He has two children, ages 70 and 66. The is with him in the room. The patient is not a smoker. 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 MEDICATIONS: His home medications include the following, calcium acetate 667 daily, aspirin 81 daily, Epogen 10,000 units three days a week, vitamin D3 5000 units daily, Neurontin 100 daily, Remeron 30 mg at bedtime, hydralazine 50 three times a day, Zocor 40 mg at bedtime, nitroglycerin as needed, zinc, Flomax 0.4 mg daily. ALLERGIES: He is allergic to adhesive tape. REVIEW OF SYSTEMS: Generally his functional capacity has decreased a great deal since he started dialysis. He is not very active physically. He denies having pains. He has not had to use nitroglycerin in a long time. He had a recent bout of pneumonia about 2-1/2 months ago. He has had no abdominal issues or diabetes. No vascular complications. No DVT. No claudication. No strokes or seizures. He does have some cramping pain in the hands, using the day of hemodialysis. Multiple systems were checked. Nothing else is showing up. PHYSICAL EXAMINATION: Vital Signs: Blood pressure is 136/61, pulse 73, respirations 20, and temperature 98.1. General: He is awake, alert, and oriented, elderly, in no distress. HEENT: Unremarkable. Chest: Bilateral rhonchi. Some crepitus, especially in the right lung field. The breath sounds are markedly diminished in the left lung. Cardiovascular: Heart sounds are irregularly irregular. There is a systolic murmur over the left sternal border , 2/6 in intensity. I do not hear any gallop or rub. Abdomen: Nontender. There is no hepatomegaly. Extremities: Very good pulses. There is no significant peripheral edema. He does have some bruises on the skin of the forearms. Neurological: He is a little hard of hearing. He moves all four extremities. He follows commands. LABORATORIES: The blood work today shows a sodium of 143, potassium of 3.8, BUN of 47, creatinine of 6.0. His albumin is 3.0. White blood cell count is 7890, hemoglobin 10.2, and hematocrit 31.9. His 12-lead electrocardiogram showed atrial fibrillation, controlled rate, no acute ischemic changes. IMPRESSION: 1. A patient who presented to the hospital with left lower lobe pneumonia. 2. The patient has end-stage renal disease, on hemodialysis. 3. The patient has chronic stable coronary artery disease. No recent acute chest pain or acute myocardial infarction to speak of. 4. Spurious episode of nonsustained ventricular tachycardia. 5. Elevated troponin. The significance of this is very uncertain given the fact that he has end- stage renal disease. He also has a markedly elevated proBNP level, indicating that he is probably in a chronic state of fluid overload. 6. History of hypertension. RECOMMENDATIONS: At this point in time from a cardiology viewpoint I do not think that we need to do anything specific. I would probably try to limit the amount of beta agonists that are used since they are probably the reason for the episodes of ventricular tachycardia. If the patient could tolerate lower doses of albuterol I think it would be best. I do not plan on doing any stress test or any additional evaluation from the heart viewpoint. Please call me if the situation changes. I would just focus on keeping him euvolemic by means of hemodialysis and controlling his pneumonia with appropriate use of antibiotics and consideration to obtain an infectious disease consultation if his clinical course does not go as anticipated. Thank you for asking us to participate in his evaluation. cc: Buzz Sales MD MTDRadha
[2016-07-20] MEDS: ASPIRIN EC PO SCH (08:40)
[2016-07-20] MEDS: NEPHROCAPS PO SCH (08:40)
[2016-07-20] MEDS: VITAMIN D PO SCH (08:40)
[2016-07-20] MEDS: PHOSLO PO SCH (08:40)
[2016-07-20] MEDS: NEURONTIN PO SCH (08:40)
[2016-07-20] MEDS: FLOMAX PO SCH (08:40)
[2016-07-20] MEDS: APRESOLINE PO SCH ×3 (08:40→21:27)
--- NOTE | 2016-07-20 10:53 | PROGRESS NOTE ---
DATE: 07/20/2016 SUBJECTIVE: Came in with shortness of breath. Unfortunately admitted to the hospital multiple times in the past. Presented on the after hemodialysis. In hemodialysis started feeling cold, weak, and tired. Asked to bring him to the emergency room. He has had increased cough, congestion, increased shortness of breath. Brought in and found to have I think pneumonia, exacerbation of chronic obstructive pulmonary disease, sepsis, with leukocytosis. He also has underlying end-stage renal disease on hemodialysis, hypertension, chronic obstructive pulmonary disease, history of hypercholesterolemia. He feels much better, sitting up in a chair, breathing better. He would like to try and go home tomorrow after dialysis. OBJECTIVE: Vital signs: Temperature 98.2 degrees, pulse 72, respirations 20, blood pressure 139/63. Blood pressure 128-139/63-69 HEENT: Pupils are equal and round. Neck: CVP less than 6 cm. Lungs: Clear in all lung dougherty. Cardiovascular: Regular rhythm and rate without murmur or S3. LABORATORIES: Reviewed from this morning. White count 7790, hematocrit 34. Platelet count 192,000. Sodium 146, potassium 4.0, chloride 102, bicarb 29. BUN 28, creatinine 4.4. ProBNP was 35,000 yesterday. C-reactive protein 141. ASSESSMENT AND PLAN: 1. Left lower lobe pneumonia, much better. 2. End-stage renal disease. Continue hemodialysis. 3. Chronic stable coronary artery disease. No recent acute chest pain or acute myocardial infarction to speak of. 4. Previous episode of nonsustained ventricular tachycardia. Cardiology following. 5. Elevated troponin is very uncertain given the fact he has end-stage renal disease. He also has markedly elevated pro-BNP. Probably has a chronic state of fluid overload. 6. History of hypertension. Blood pressure is well controlled. Hopefully do dialysis tomorrow and then can go home. Reviewed his orders. I do not see anything to change at this point. cc: Son Marina MD
--- NOTE | 2016-07-20 14:39 | PROGRESS NOTE ---
DATE: 07/20/2016 TIME SEEN: 0845 SUBJECTIVE: Mr. Traylor is resting quietly in bed. He has no complaints. States that he is feeling much better, breathing much better, has improved. His is at his bedside. OBJECTIVE: His most recent vital signs are temperature 98.2 degrees, blood pressure 139/63, heart rate 72, respirations 20. He is on room air. Last recorded saturation 96%. He has had 350 in. He has had 1000 out on dialysis yesterday. LABORATORIES: Sodium 146, potassium 4, chloride 102, CO2 of 29, BUN 28, creatinine 4.4, glucose 81, anion gap 15, calcium 9.1, phosphorus 3.5, albumin 2.9. White count 7.79, hemoglobin 10.9, hematocrit 34, platelet count 192,000. PHYSICAL EXAMINATION: General: This is an 89-year-old white male sitting on the side of the bed. He is in no acute distress. Skin: Warm and dry. HEENT: Normocephalic, atraumatic. Conjunctivae pink. He has MIS. Mucous membranes moist. Neck: Supple. Trachea midline. No JVD. Cardiovascular: Regular rate and rhythm. He has a systolic murmur that is present. No gallop. Lungs: Clear to auscultation anteriorly. Equal excursion. On room air. Abdomen: Round, soft, nontender. Positive bowel sounds. Genitourinary: Not inspected. Minimal void with dialysis assist. Extremities: No edema. No clubbing or cyanosis. Integumentary: No rashes or lesions evident. Neurological: Alert and oriented x3. ASSESSMENT AND PLAN: 1. End-stage renal disease. Patient had his routine dialysis treatment yesterday. We will plan for dialysis in the morning if he remains in the hospital, hopefully to be discharged and followed up with dialysis on Sunday. 2. Electrolytes, acid-base balance. These remain stable. 3. Anemia. This remains low, but stable. No need for intervention. 4. Pneumonia. He continues on renal dosed antibiotics. I would to thank you for allowing us to follow with this patient. Seen, data reviewed, discussed with Anay Dan on 07/20/16. I agree with the above assessment and plan of care. rg Dictated by LAVELL Sevilla for Crow Antony MD cc: LAVELL Sevilla MD [facility]
[2016-07-20] MEDS: ROCEPHIN 1 GM/NS 1 GM/50 ML IVPB IV SCH (17:59)
[2016-07-20] MEDS: ZITHROMAX 500 MG/NS 500 MG/250 ML IVPB IV SCH (21:27)
[2016-07-20] MEDS: ZOCOR PO SCH (21:27)
[2016-07-21] MEDS: DUONEB (A & A) INH SCH ×2 (03:33→08:05)
[2016-07-21] MEDS ORDERED: NS 2,000 ML MISC PRN (07:06)
[2016-07-21] MEDS ORDERED: TIGHT: 0.2 ML/HR MISC PRN (07:06)
[2016-07-21] MEDS ORDERED: HEPARIN IV PRN (07:06)
[2016-07-21 07:21] LABS: ALBUMIN 2.8 g/dL (3.5-5.0); CALCIUM 9.2 mg/dL (8.8-10.2); POTASSIUM 3.8 mmol/L (3.5-5.1)
[2016-07-21] MEDS ORDERED: NS 2,000 ML ONE (07:26)
[2016-07-21] MEDS ORDERED: HEPARIN ONE (07:26)
--- NOTE | 2016-07-21 09:47 | Diag Imaging Result Document ---
PROCEDURE NAME: CHEST-1 VIEW - 07/21/2016 SINGLE FRONTAL RADIOGRAPH OF THE CHEST: COMPARISON: 07/18/2016. FINDINGS: There is a dense lingular consolidation that appears to have worsened during the interval. There is suggestion of small effusions that are approximately stable. Lung volumes are somewhat lower than the previous study. Cardiac silhouette is stable. IMPRESSION: Lingular consolidation that appears to be somewhat worse than the previous study.
[2016-07-21] MEDS: APRESOLINE PO SCH ×3 (12:52→13:00)
[2016-07-21] MEDS: PHOSLO PO SCH (12:53)
[2016-07-21] MEDS: FLOMAX PO SCH (12:53)
[2016-07-21] MEDS: NEURONTIN PO SCH (12:53)
[2016-07-21] MEDS: NEPHROCAPS PO SCH (12:53)
[2016-07-21] MEDS: VITAMIN D PO SCH (12:54)
[2016-07-21] MEDS: ASPIRIN EC PO SCH (12:54)
--- NOTE | 2016-07-21 14:51 | PROGRESS NOTE ---
DATE: 07/21/2016 SUBJECTIVE: He is sitting up on room air. No shortness of breath. Eating well without difficulty. OBJECTIVE: Vital Signs: Blood pressure 123/62, heart rate 77, respiration 18, afebrile. General: Chronically ill, in no distress. Skin: Warm and dry. HEENT: Conjunctivae are pink. Neck: Neck veins are not distended. Heart: Regular. Lungs: Have equal breath sounds. No crackles. Abdomen: Soft, nontender. Bowel sounds present. Extremities: Have no edema, clubbing, or cyanosis. LABORATORY DATA: Sodium 146, potassium 3.8, chloride 105, bicarbonate 32, BUN 41, creatinine 5.9. IMPRESSION: 1. Pneumonia. Improving. Plan for discharge today. 2. End-stage kidney disease. He will have his routine dialysis prior to discharge. 3. Electrolytes acceptable. 4. Acid-base acceptable. 5. Anemia in target. cc: Crow Antony MD
[2016-07-21 15:09] VITALS: BP 141/72
--- NOTE | 2016-07-22 11:44 | DISCHARGE SUMMARY ---
ADMISSION DATE: 07/14/2016 DISCHARGE DATE: 07/21/2016 SUMMARY: The patient was admitted on 07/14/2016. He has had multiple admissions in the past. He presented on 07/14/2016 after hemodialysis. At the end of dialysis, he started feeling cold and tired and asked them to bring him to the emergency department. He noticed he had increased cough and congestion and increased shortness of breath the last day or so. Past medical history of end-stage renal disease, on hemodialysis, COPD, hypertension, high cholesterol, known coronary artery disease status post CABG bypass, history of a cholecystectomy. He was admitted with sepsis, secondary to pneumonia, leukocytosis and treated with antibiotics and showed progressive improvement. Chest x-ray on 07/18/2016 showed stable chest, small right pleural effusion. Clinically, better although very weak. Dr. Sales was consulted on 07/19/2016. He had ventricular tachycardia, coronary artery disease, and positive troponin. Dr. Sales felt there was no sign of active cardiac ischemia at this time. He wanted to try and limit the amount of beta agonists that were used, and they may have been the reason for the ventricular tachycardia. The patient continued to improve and received hemodialysis. His chest x-ray on 07/21/2016 showed lingular consolidation appears to be somewhat but clinically better and appeared better. No fever. It was felt he could go home. DISCHARGE MEDICATIONS: 1. Tylenol as needed. 2. Aspirin 81 mg a day. 3. We will stop the Zithromax. 4. He is on PhosLo 667 mg daily. 5. He is on vitamin D 5000 units daily. 6. He gets Epogen 10,000 units Sunday, Wednesdays, and Fridays with dialysis. 7. Neurontin 100 mg q.a.m. 8. He is taking Robitussin as needed for cough. 9. Apresoline 50 mg 2099. 10. Multivitamin. 11. Zocor 40 mg a day. 12. Flomax 0.4 mg a day. Follow up with Dr. Antony. I am going to send him home with Levaquin 250 mg daily for another 5 days. cc: Son Marina MD
== END 2016-07-21 17:19 | disposition home or self-care (01) ==
LOC: P.ED 15:45 → P.MEDSURG 17:40 → SUATTDRO 17:40 → 3N 07-17 13:59
PROVIDERS: ATTEND Emergency Medicine

== ENCOUNTER 2016-12-02 05:13 | Inpatient (IN) ==
[2016-12-02] MEDS ORDERED: ATROPINE ONE (05:35)
[2016-12-02] MEDS ORDERED: ASPIRIN PO STA (05:36)
[2016-12-02] MEDS ORDERED: ATROPINE IV ONE (05:37)
--- NOTE | 2016-12-02 05:41 | PROVIDER DOCUMENTATION ---
HPI-Respiratory General - General Chief Complaint: Shortness of Breath Stated Complaint: CHEST CONGESTION Time Seen by Provider: 12/02/16 05:36 Source: patient, family Unable to obtain history due to:: urgency Allergies/Adverse Reactions: Patient Allergies Allergy/AdvReac Type Severity Reaction Status Date / Time adhesive tape Allergy RASH Verified 04/08/15 11:21 Home Medications: Home Medication List Medication Instructions Recorded Confirmed Last Taken Type Aspirin [[place] Aspirin] 81 mg PO DAILY 10/22/13 12/02/16 10/21/16 History 81 SIMVAstatin [Zocor] 40 mg PO HS 10/22/13 12/02/16 10/23/16 21:00 History 40 Tamsulosin [Flomax] 0.4 mg PO DAILY 10/22/13 12/02/16 10/23/16 21:00 History 0.4 Multivit-Min/FA/Lycopene/Lut 1 each PO DAILY 05/04/14 12/02/16 10/23/16 History [Centrum Silver Tablet] 1 Hydralazine [Apresoline] 50 mg PO TID 03/17/15 12/02/16 10/23/16 History 50 Calcium Acetate 667 mg PO TID 04/25/16 12/02/16 10/23/16 21:00 History 667 Cholecalciferol (Vitamin D3) 5,000 unit PO DAILY 04/25/16 12/02/16 10/23/16 History [Vitamin D3] 5000 Gabapentin [Neurontin] 100 mg PO QAM 04/25/16 12/02/16 10/23/16 History 100 Mirtazapine [Remeron] 30 mg PO HS 04/25/16 12/02/16 10/23/16 21:00 History 30 Nitroglycerin [Nitrostat] 0.4 mg SL PRN PRN 04/25/16 12/02/16 Unknown History Zinc 50 mg PO DAILY 04/25/16 12/02/16 10/23/16 07:30 History 50 Folic Acid/Vit Bcomp,C [Dialyvite 0.8 mg PO DAILY 10/10/16 12/02/16 10/23/16 07: 30 History 800 Tablet] 0.8 Loratadine 10 mg PO DAILY 10/10/16 12/02/16 Unknown History - History of Present Illness-Resp Nature of Presenting Problem: Complains of shortness of breath and chest pain since last night at 9pm. Denies any other complaints. Quality of Pain: reports: aching Onset/Duration: reports: 4-6 hours ago Timing: reports: improving Exposure: denies: unknown cause Cough Quality/Degree: reports: no cough Episode Frequency: occasional episodes Current Respiratory Medication Therapy: Initiated none Modifying Factors: improves with: exertion. worse with: coughing Associated Symptoms: reports: chest pain/soreness. denies: flu-like symptoms Similar Symptoms Previously?: Yes Recently seen or treated by another doctor?: No Review of Systems - Adult - REVIEW OF SYSTEMS - ADULT Constitutional: reports: no symptoms reported Eyes: reports: no symptoms reported Ears, Nose, Mouth & Throat: reports: no symptoms reported Cardiovascular: reports: no symptoms reported Respiratory: reports: see HPI Gastrointestinal: reports: no symptoms reported Genitourinary: reports: no symptoms reported Musculoskeletal: reports: no symptoms reported Integumentary: reports: no symptoms reported Neurological: reports: no symptoms reported Psychiatric: reports: no symptoms reported Endocrine: reports: no symptoms reported Hematologic/Lymphatic: reports: no symptoms reported Allergic/Immunologic: reports: no symptoms reported All Other Systems: Reviewed and Negative Past History - Adult - PAST MEDICAL HISTORY-ADULT Review of Records: reports: Old Records Reviewed, Nursing Assessment Review, Medications Reviewed, Social history reviewed & non-contributory. Major Childhood Illnesses: reports: denies history Cardiovascular: reports: HTN Respiratory: reports: denies history Gastrointestinal: reports: denies history Genitourinary: reports: dialysis, ESRD, kidney disease Musculoskeletal: reports: denies history Neurological: reports: denies history Endocrine/Immune: reports: denies history Other Conditions: reports: denies history Additional History: Pt currently on Dialysis - PRIOR SURGERIES/PROCEDURES Surgical/Procedure History: reports: CABG, cholecystectomy, orthopedic ( extremity) (hip), other (Dialysis graft placed) - PRIOR HOSPITALIZATIONS Prior Hospitalizations: reports: none - IMMUNIZATION STATUS Childhood Immunizations: See Nurse Assessment Flu Vaccine: See Nurse Assessment - FAMILY HISTORY Family History: reviewed, not pertinent Physical Exam-General - PHYSICAL EXAM-ADULT Initial Vital Signs Reviewed: Yes - CONSTITUTIONAL General Appearance: appears well, no apparent distress - EYES Eyes: PERRL/EOMI - HEAD, EARS, NOSE, MOUTH & THROAT HENMT: normocephalic/atraumatic, moist mucous membranes - RESPIRATORY Respiratory: chest non-tender, lungs clear, normal breath sounds - CARDIOVASCULAR Cardiovascular: normal peripheral pulses, bradycardia - GASTROINTESTINAL (ABDOMEN) Abdominal Exam: normal bowel sounds, non tender - LYMPHATIC Lymphatic: no adenopathy - MUSCULOSKELETAL Back Exam: normal inspection Extremity: normal range of motion - SKIN Integumentary: normal color, normal turgor - NEUROLOGIC Neurologic: coat maker II-XII nml as tested, grossly normal - PSYCHIATRIC Psych/Mental Status: normal mood/affect Progress - PLAN OF CARE/RESULTS Progress/Plan/Lab Results: Orders Category Date Time Status Cardiac Monitoring DIRECTED Care 12/02/16 05:36 Completed Nursing- MD Consult Request ROUTINE Care 12/02/16 09:19 Completed Oxygen Therapy- ED Nursing DIRECTED Care 12/02/16 05:36 Completed Saline Loc NOW Care 12/02/16 05:36 Completed MD [Physician/Provider Consults] Routine Cons 12/02/16 09:19 Ordered CHEST-2 VIEWS [RAD] Stat Exams 12/02/16 06:53 Completed CBC WITH ELECTRONIC DIFF [HEME] Stat Lab 12/02/16 05:45 Completed CK PROFILE [SP CHEM] Stat Lab 12/02/16 05:45 Completed CK PROFILE [SP CHEM] Stat Lab 12/02/16 07:34 Completed COMPREHENSIVE METABOLIC PANEL [CHEM] Stat Lab 12/02/16 05:45 Completed MAGNESIUM [CHEM] Stat Lab 12/02/16 05:45 Completed PRO B-NATRIURETIC PEPTIDE Stat Lab 12/02/16 05:45 Completed [address]IME WITH INR PL [COAG] Stat Lab 12/02/16 05:[address] [COAG] Stat Lab 12/02/16 05:45 Completed TROPONIN T Stat Lab 12/02/16 05:45 Completed TROPONIN T Stat Lab 12/02/16 07:34 Completed TSH Stat Lab 12/02/16 07:34 Completed Aspirin Med 12/02/16 05:36 Discontinued 325 mg PO STAT STA Aspirin EC Med 12/03/16 09:00 Discontinued 81 mg PO DAILY Atropine Med 12/02/16 05:37 Discontinued 0.5 mg IV NOW ONE Atropine Med 12/02/16 05:35 Discontinued 1 mg .ROUTE .STK-MED ONE Calcium Acetate [Phoslo] Med 12/02/16 12:00 Discontinued 667 mg PO TID CC Cholecalciferol (Vit D3) [Vitamin D] Med 12/03/16 09:00 Discontinued 5,000 unit PO DAILY Folic Acid/Vitamin B Comp W-C [Nephro-Braulio] Med 12/03/16 09:00 Discontinued 1 each PO DAILY Gabapentin [Neurontin] Med 12/03/16 09:00 Discontinued 100 mg PO QAM Hydralazine [Apresoline] Med 12/02/16 13:00 Discontinued 50 mg PO TID Loratadine [Claritin] Med 12/03/16 09:00 Discontinued 10 mg PO DAILY Mirtazapine [Remeron] Med 12/02/16 21:00 Discontinued 30 mg PO HS Multivitamins/Minerals [Centrum Silver] Med 12/03/16 09:00 Discontinued 1 each PO DAILY Nitroglycerin Sl [Nitroglycerin] Med 12/02/16 09:19 Discontinued 0.4 mg SL PRN PRN SIMVAstatin [Zocor] Med 12/02/16 21:00 Discontinued 40 mg PO HS Tamsulosin [Flomax] Med 12/03/16 09:00 Discontinued 0.4 mg PO DAILY Zinc Sulfate Med 12/03/16 09:00 Discontinued 220 mg PO DAILY EKG [EKG] Stat Ther 12/02/16 05:36 Draft EKG [EKG] Stat Ther 12/02/16 07:35 Draft Transfer/Admit Order [TRANSFER] Routine Transfer 12/02/16 09:15 Completed Result Diagrams: 12/02/16 05:45 12/02/16 05:45 - CHANGE OF SHIFT REPORT (ED Provider) Report Given and Care Transferred to:: [facility] Time of Transfer: 06:00 Items Pending: Labs, XRAY Results Departure - Departure Date of Disposition Decision: 11/30/16 Time of Disposition Decision: 06:00 DIAGNOSIS: ESRD (end stage renal disease), Bradycardia Disposition: ADMITTED INPATIENT 09 Certified Medical Emergency: Emergent Condition: Fair - Critical Care Note This patient required my direct & personal management of CC.: No Attestation - Physician/ TIKI Attestation The physician spent face to face time with patient:: Yes Advanced Practice Provider documentation review:: Supervising physician onsite and consulted in the evaluation and care of this patient. The physician did have a face to face encounter with the patient.
[2016-12-02 05:55] LABS: MANUAL DIFF NEEDED? NO
[2016-12-02 05:57] LABS: BASO% 0.4 % (0.0-0.8); EOS# 0.36 X1000 (0.0-0.7); EOS% 4.5 % (0.0-10.0); HEMATOCRIT 35.4 % (42.0-52.0); HEMOGLOBIN 11.6 g/dL (14.0-18.0); IMM GRAN# 0.02 X1000 (0.0-0.04); IMM GRAN% 0.2 % (0.0-0.5); LYMPH# 1.66 X1000 (1.2-3.4); LYMPH% 20.7 % (20.5-51.1); MCH 29.7 PG (27-31); MCHC 32.8 g/dL (33-37); MCV 90.5 FL (81-99); MONO# 0.94 X1000 (0.11-0.59); MONO% 11.7 % (1.7-9.3); MPV 10.1 FL (7.4-10.4); NEUT% 62.5 % (42.2-75.2); PLT 204 X1000 (130-400); RBC 3.91 XMIL (4.7-6.1)
--- NOTE | 2016-12-02 06:00 | EKG Report ---
Test Performed on : 12/02/2016 05:33:08 AM Test Reason : CHEST PAIN Blood Pressure : / mmHG Vent. Rate : 047 BPM Atrial Rate : 047 BPM P-R Int : 000 ms QRS Dur : 086 ms QT Int : 516 ms P-R-T Axes : 000 009 -02 degrees QTc Int : 456 ms Undetermined rhythm Nonspecific ST abnormality Abnormal ECG When compared with ECG of 02-DEC-2016 05:32, (Unconfirmed) Current undetermined rhythm precludes rhythm comparison, needs review Unconfirmed Result
[2016-12-02 06:10] LABS: INR 1.05 (0.86-1.15); PROTIME 14.6 Seconds (12.1-15.5)
[2016-12-02 06:11] LABS: PTT PL 41.8 Seconds (22.6-43.9)
[2016-12-02 06:20] LABS: CALCIUM 9.3 mg/dL (8.8-10.2); MAGNESIUM 1.9 mg/dL (1.5-2.7); POTASSIUM 3.6 mmol/L (3.5-5.1); TOTAL BILIRUBIN 1.1 mg/dL (0.20-1.00)
--- NOTE | 2016-12-02 08:42 | Diag Imaging Result Doc PS360 ---
EXAM: CHEST-2 VIEWS INDICATION: cough TECHNIQUE: 2 views COMPARISON: 07/21/2016 FINDINGS: The dense consolidation seen in the left lower lung zone on the previous study has largely resolved. There is residual scarring in the region. There is a small to moderate-sized right pleural effusion and a small left effusion. There is right basilar atelectasis. Cardiac silhouette is prominent but stable. There are stable CABG changes. Central vasculature is unremarkable. IMPRESSION: Bilateral effusions, largest on the right. Electronically signed by Marlon Alan 12/02/2016 8:39 AM
--- NOTE | 2016-12-02 08:48 | EKG Report ---
Test Performed on : 12/02/2016 07:54:24 AM Test Reason : sob Blood Pressure : / mmHG Vent. Rate : 050 BPM Atrial Rate : 066 BPM P-R Int : 000 ms QRS Dur : 084 ms QT Int : 518 ms P-R-T Axes : 000 011 -26 degrees QTc Int : 472 ms Undetermined rhythm Nonspecific ST and T wave abnormality Prolonged QT Abnormal ECG When compared with ECG of 02-DEC-2016 05:33, (Unconfirmed) Current undetermined rhythm precludes rhythm comparison, needs review Nonspecific T wave abnormality now evident in Anterior leads Unconfirmed Result
[2016-12-02] MEDS ORDERED: NITROGLYCERIN SL PRN (09:19)
[2016-12-02] MEDS ORDERED: HEPARIN IV PRN (11:07)
[2016-12-02] MEDS ORDERED: TIGHT: 0.2 ML/HR MISC PRN (11:07)
[2016-12-02] MEDS ORDERED: NS 2,000 ML MISC PRN (11:07)
--- NOTE | 2016-12-02 11:07 | EKG Report ---
Test Performed on : 12/02/2016 10:34:41 AM Test Reason : arlin/weak Blood Pressure : / mmHG Vent. Rate : 045 BPM Atrial Rate : 045 BPM P-R Int : 000 ms QRS Dur : 082 ms QT Int : 500 ms P-R-T Axes : 000 036 -23 degrees QTc Int : 432 ms Junctional rhythm. with premature supraventricular complexes. in a pattern of bigeminy. Nonspecific ST and T wave abnormality Abnormal ECG When compared with ECG of 02-DEC-2016 07:54, (Unconfirmed) Previous ECG has undetermined rhythm, needs review Unconfirmed Result
--- NOTE | 2016-12-02 11:40 | HISTORY AND PHYSICAL ---
CHIEF COMPLAINT: Shortness of breath, increased swelling in the lower extremities. HISTORY OF PRESENT ILLNESS: Patient is an 89-year-old male, who has a known history of end-stage renal failure on hemodialysis. He presented to [place] [facility] with increased shortness of breath, increased fatigue, increased dyspnea on exertion, and has had increased swelling in his lower extremities. Family also notes that he has been more tired and short of breath. ALLERGIES: Adhesive tape. MEDICATIONS: Aspirin 81, Zocor 40, Flomax 0.4, multivitamins hydralazine 50 three times a day, calcium 667 t.i.d., vitamin D, Neurontin 100, Remeron 30, Nitrostat 0.4, zinc 50, loratadine. REVIEW OF SYSTEMS: Positive cough, shortness of breath. He has had some chest pain since last night. Symptoms have been going on 4-6 hours. Not improving he just had hemodialysis. Denies any dysuria denies any constipation, melena or hematochezia. Denies any hemoptysis, denies fevers or chills. PAST MEDICAL HISTORY: Hypertension, end-stage renal disease on hemodialysis, known coronary artery disease status post CABG, history of cholecystectomy, history of hip surgery. FAMILY HISTORY: Noncontributory. SOCIAL HISTORY: The patient lives at home. He is . He is cared for by his and his family. He does not smoke or drink. OBJECTIVE: Vital Signs: Reviewed. Temperature 95 degrees, pulse of 42-52, respiratory 18, BP 136/59. General: Patient is awake, alert, currently in no respiratory distress. Pleasant to talk with. Neck: Supple. CV: Regular rate. Chest: Relatively clear. Abdomen: Soft. Extremities: Moves all extremities. He has 3+ pitting edema in bilateral lower extremities. Neuro: No focal changes. The patient is awake, alert and pleasant to talk with. Memory appears his baseline. Skin: Warm, dry. No rashes. ASSESSMENT: 1. Bradycardia. 2. End-stage renal disease. 3. Known coronary artery disease. PLAN: We will transfer patient to [facility] [place]. Dr. Antony has already been notified and the patient will need undergo dialysis today due to fluid overload. cc: Navjot Khan MD
--- NOTE | 2016-12-02 12:44 | CONSULTATION ---
DATE OF CONSULTATION: 12/02/2016 INDICATION: Relative bradycardia. HISTORY OF PRESENT ILLNESS: Mr. Traylor is an 89-year-old white male on hemodialysis with a history of coronary disease and coronary bypass who presented with a complaint of intermittent shortness of breath. He has been having increased fatigue as well as dyspnea on exertion. He denies any lightheadedness or syncopal episodes. He reports compliance with all of his dialysis sessions and reports staying for the entire length of time. Again, no complaints of syncope. In the ER at [place] he was noted to have a significant bradycardia with rates sometimes less than 40. 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 PAST MEDICAL HISTORY: 1. Significant for hypertension. 2. End-stage renal disease. 3. Coronary disease with history of bypass. SOCIAL HISTORY: Lives at home. He is . His is present at his bedside. No tobacco or alcohol. FAMILY HISTORY: Significant for hypertension. REVIEW OF SYSTEMS: A 10 system review of systems is negative except for those mentioned in HPI. PHYSICAL EXAMINATION: He is afebrile. Heart rates in the 40s to 50s. Blood pressure 133/61. Generally: He is in no acute distress. HEENT: Oropharynx is moist. Normal dentition. Eye examination shows pink conjunctivae, white sclerae. Neck: Examination shows no obvious thyromegaly or thyroid tenderness. Cardiovascular: He is bradycardic, seems relatively regular presently. He has no lower extremity edema. Chest: Exam is notable for some reduced breath sounds bilaterally predominantly in the bases. He has no increased work of breathing. This is consistent with bilateral effusions noted on his chest x-ray. Abdomen: Soft, nontender, nondistended. He has no obvious organomegaly. Skin Exam: Warm and dry throughout without any rashes PERTINENT DATA: EKGs as detailed above in the HPI. His white count is 8. His hematocrit is 35.4, platelet count 204,000. INR 1.05. Sodium 135, potassium 3.6, his BUN is 16 with a creatinine of 3[place] [address]. His troponin is 0.141. ASSESSMENT: 1. 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 2. History of coronary disease with mild troponin elevation. 3. Volume overload on hemodialysis. PLAN: At this point, the patient seems an appropriate transfer to [facility] for consideration of a pacemaker implantation. Patient's episodes of dyspnea on exertion, overall fatigue could be related to his relative bradycardia. He is not on any atrioventricular rosangela blocking agents. He does not appear to have any significant electrolyte disturbances which would fuel this bradycardia at this time. I will contact the service at [facility] and see about facilitating a transfer. cc: MD Marvin Booker MD
[2016-12-02] MEDS: APRESOLINE PO SCH ×2 (13:26→17:26)
[2016-12-02] MEDS: PHOSLO PO SCH ×2 (13:26→17:27)
--- NOTE | 2016-12-02 13:37 | CONSULTATION ---
DATE OF CONSULTATION: 12/02/2016 REASON FOR CONSULTATION: Assistance with management. CONSULTING PHYSICIAN: Dr. Skip Bowers from the emergency room, directly contacted. HISTORY OF PRESENT ILLNESS: Mr. Traylor is an 89-year-old white male. He is on chronic hemodialysis for end-stage kidney disease. He has also had significant cardiac history, though his LVEF is good, he has problems with fluid overload, atrial fibrillation, coronary disease. He has had recurrent pleural effusions and has even required thoracentesis in the past. I last saw him earlier in the week when he was having some difficulty with shortness of breath. He has difficulty achieving his dry weight because of hypotension at the outpatient dialysis center. He had his routine dialysis yesterday, but he is unaware of whether he achieved his dry weight. He does not relate any other problems related to that treatment. He had increasing shortness of breath, and so he presented to the emergency room today for evaluation and treatment. No chills, fevers, cough, nausea, vomiting, etc. Appetite is about the same. It is intermittent and marginal. His last admission related to his pleural effusion was in July. He also had episodes of ventricular tachycardia and a pneumonia at that time. PAST MEDICAL HISTORY: 1. End-stage kidney disease. 2. Coronary artery disease status post bypass grafting. 3. COPD. 4. Hypertension. 5. Hyperlipidemia. 6. 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 7. Metabolic bone disease. HOME MEDICATIONS: Include aspirin, tamsulosin, simvastatin, multivitamin, hydralazine, gabapentin, calcium acetate, mirtazapine, nitroglycerin, zinc, cholecalciferol, loratadine. ALLERGIES: Adhesive tape. SOCIAL HISTORY: He is and lives with his . REVIEW OF SYSTEMS: Otherwise noncontributory. PHYSICAL EXAMINATION: Vital Signs: Blood pressure 132/63 heart rate, 18 respirations 42. General: He is a chronically ill, elderly man, in no acute distress. Skin: Warm and dry, with hyperpigmentation and bruising. HEENT: Pupils are equal. Conjunctivae are pink. Corneal arcus is present. Oropharynx is clear. Tongue is normal. Neck: Supple. Trachea is midline. Neck veins are not distended. Heart: Somewhat irregular and bradycardic. Systolic murmur present. Lungs: Have equal breath sounds. No crackles or wheezes. Abdomen: Soft, nontender. Bowel sounds are present. Extremities: Have 2 to 3+ edema. No clubbing or cyanosis. LABORATORY DATA: Sodium 135, potassium 3.6, chloride 95, bicarbonate 29, BUN 16, creatinine 3.2. Hemoglobin 11.6. IMPRESSION: 1. Pleural effusion. Associated with peripheral edema. He does not have neck vein distention or overt pulmonary edema. His albumin is normal at 4.0. It is unclear what the immediate cause of his problem he has. It is likely that he is simply not achieving dry weight because of cardiac issues during dialysis. We will plan for a hemofiltration only treatment today and try to lower his dry weight 2-3 kg and reassess his symptoms. Also, his bradycardia may be contributing, and he may need cardiac evaluation and consideration of a pacemaker. 2. Anemia. We will continue his erythropoietin. 3. Electrolytes/acid base in target. cc: MD Marvin Aguilar MD
[2016-12-02 20:17] VITALS: BP 134/52
[2016-12-02] MEDS ORDERED: REMERON PO SCH (21:00)
[2016-12-02] MEDS ORDERED: ZOCOR PO SCH (21:00)
[2016-12-03] MEDS ORDERED: NEPHROCAPS PO SCH (09:00)
[2016-12-03] MEDS ORDERED: CENTRUM SILVER PO SCH (09:00)
[2016-12-03] MEDS ORDERED: FLOMAX PO SCH (09:00)
[2016-12-03] MEDS ORDERED: NEPHRO-VITE PO SCH (09:00)
[2016-12-03] MEDS ORDERED: ASPIRIN EC PO SCH (09:00)
[2016-12-03] MEDS ORDERED: NEURONTIN PO SCH (09:00)
[2016-12-03] MEDS ORDERED: ZINC SULFATE PO SCH (09:00)
[2016-12-03] MEDS ORDERED: CLARITIN PO SCH (09:00)
[2016-12-03] MEDS ORDERED: VITAMIN D PO SCH (09:00)
--- NOTE | 2016-12-04 07:24 | EKG Report ---
Test Performed on : 12/02/2016 11:38:59 AM Test Reason : arlin/weak Blood Pressure : / mmHG Vent. Rate : 043 BPM Atrial Rate : 034 BPM P-R Int : 000 ms QRS Dur : 082 ms QT Int : 528 ms P-R-T Axes : 000 021 -15 degrees QTc Int : 446 ms Junctional bradycardia. Nonspecific ST and T wave abnormality Abnormal ECG When compared with ECG of 02-DEC-2016 10:34, (Unconfirmed) ST less depressed in V4 and V5 Confirmed by Brian Cottrell DO ([id number]) on 12/04/2016 6:24:11 PM
[2016-12-04] MEDS ORDERED: EPOGEN SUBQ SCH (09:00)
--- NOTE | 2016-12-07 08:07 | DISCHARGE SUMMARY ---
ADMISSION DATE: 12/02/2016 DISCHARGE DATE: 12/02/2016 DISCHARGE DIAGNOSES: 1. Symptomatic bradycardia. 2. Endstage renal disease, on dialysis. 3. Coronary artery disease. 4. Diabetes mellitus. CONSULTATIONS: 1. Dr. Cecil Cottrell from cardiology. 2. Dr. Crow Antony from nephrology. HOSPITAL COURSE: This patient basically was admitted to the hospital because of shortness of breath. He has a history of end-stage renal disease, on dialysis. He initially presented to the emergency department with increased shortness of breath, fatigue, dyspnea on exertion. He was feeling also dizzy and worsening swelling in both lower extremities. He was admitted initially for a volume overload, although it is important to remark that he apparently did not miss any hemodialysis sessions. In any case, while this patient was transferred to [facility], it was noted that he was having significant bradycardia. The heart rate was checked manually. It was 20-22 per minute. The patient was also symptomatic with some sensation of lightheadedness. He was evaluated by Dr. Cecil Cottrell. He definitely recommended for this patient to be transferred to [facility] because he has consulted with electrophysiology service and they recommend a permanent pacemaker placement. Patient is going to be transferred to [facility]. DISCHARGE PHYSICAL EXAMINATION: Vital Signs: Temperature 98.5 degrees, heart rate 50, respiratory rate 16, blood pressure 134/52, O2 saturation 95% on 2 L nasal cannula. General Examination: This is a very pleasant, 89-year-old, male, lying in bed, in no acute distress. HEENT: Head is normocephalic and atraumatic. Anicteric sclerae and pale conjunctivae. Mucous membranes moist. Neck: Supple. No JVD noted. No carotid bruits. No lymphadenopathy. Cardiovascular Examination: S1 and S2 heard. No murmurs, gallops, or rubs. Regular rate and rhythm. Respiratory Examination: There are some crackles in both bases. Patient is not using any accessory muscles or having work of breathing. Abdomen: Soft, nontender to palpation. Bowel sounds present. No organomegaly. Extremities: There is 3+ pitting edema in both lower extremities up to both knees. Neurological Examination: Patient is alert and oriented x3. Moves 4 extremities. DISCHARGE DISPOSITION: The patient is going to [facility]. cc: Marvin Guerrero MD
== END 2016-12-02 20:45 | disposition short-term general hospital (02) ==
LOC: P.ED 05:13 → SUATTDRO 09:51 → 4N 09:51
PROVIDERS: ADMIT Internal Medicine; ATTEND Internal Medicine